=== PATIENT | male | born 1975 | race Caucasian/White ===

== ENCOUNTER 2017-07-20 08:54 | Emergency (ER) | payer OTHER ==
[~2017-07-20] VITALS: Ht 182.9 cm; Wt 71.7 kg
[~2017-07-20 08:54] MED LIST: Amoxicillin500 MG PO; HYDACE5 PO; HYDACE7.5 PO; IBUP600 PO; IBUP800 PO; OXYACE5T PO; Veetids 500500 MG PO
[2017-07-20] MEDS ORDERED: VICODIN 5-3001 EACH PO (11:15)
== END 2017-07-20 11:32 | disposition home or self-care (01) ==
LOC: ER 08:54
DX: S93.402A Sprain of unspecified ligament of left ankle, initial encounter (principal); X58.XXXA Exposure to other specified factors, initial encounter; Z88.8 Allergy status to other drugs, medicaments and biological substances; Z79.2 Long term (current) use of antibiotics
CPT/HCPCS: 36415; 73610; 84550; 99283

== ENCOUNTER 2017-07-24 10:35 | Emergency (ER) | payer OTHER ==
[~2017-07-24] VITALS: Ht 170.2 cm; Wt 77.1 kg
[~2017-07-24 10:35] MED LIST changes: +VICODIN 5-3001 EACH PO
== END 2017-07-24 11:55 | disposition home or self-care (01) ==
LOC: ER 10:35
DX: M25.572 Pain in left ankle and joints of left foot (principal); M25.571 Pain in right ankle and joints of right foot; M54.5 Low back pain; M79.652 Pain in left thigh; M79.651 Pain in right thigh; F17.210 Nicotine dependence, cigarettes, uncomplicated
CPT/HCPCS: 72100; 99283

== ENCOUNTER → 2017-07-28 | Outpatient (CLI) | payer OTHER ==
[2017-07-28 10:03] LABS: BASOPHILS ABSOLUTE AUTO 0.01 K/mm3 (0.00-0.23); BASOPHILS PERCENT AUTO 0 % (0-2); EOSINOPHILS ABSOLUTE AUTO 0.11 K/mm3 (0.00-0.68); EOSINOPHILS PERCENT AUTO 1 % (0-6); Hematocrit 39.7 % (37.0-53.0); Hemoglobin 12.7 g/dL (13.5-17.5); IMMATURE GRAN ABSOLUTE AUTO 0.02 K/mm3 (0.00-0.10); IMMATURE GRAN PERCENT AUTO 0 % (0-1); LYMPHOCYTES ABSOLUTE AUTO 1.32 K/mm3 (0.84-5.20); LYMPHOCYTES PERCENT AUTO 14 % (21-46); MONOCYTES ABSOLUTE AUTO 0.39 K/mm3 (0.16-1.47); MONOCYTES PERCENT AUTO 4 % (4-13); Mean Corpuscular HGB 29.5 pg (26.0-34.0); Mean Corpuscular Volume 92 fL (80-100); Mean Platelet Volume 10.9 fL (9.1-12.4); NEUTROPHILS ABSOLUTE AUTO 7.74 K/mm3 (1.96-9.15); NEUTROPHILS PERCENT AUTO 81 % (41-73); Platelet Count 214 K/mm3 (150-400); RDW Coefficient Variation 13.2 % (11.7-14.2); RDW Standard Deviation 44.2 fL (35.1-46.3); Red Blood Cell Count 4.31 M/mm3 (4.30-5.90); White Blood Cell Count 9.59 K/mm3 (4.00-11.30)
[2017-07-28 10:17] LABS: Alanine Aminotransfer (ALT/SGP 24 U/L (12-78); Albumin, Blood 3.8 g/dL (3.4-5.0); Albumin/Globulin Ratio 1.2 (0.8-1.8); Alk Phos 129 U/L (40-126); Anion Gap 6 mmol/L (6-16); Aspartate Aminotrans (AST/SGOT 23 U/L (12-37); Bilirubin, Total 0.3 mg/dL (0.1-1.0); Blood Urea Nitrogen 9 mg/dL (8-24); Bun/Creatinine Ratio 11.3 (12.0-20.0); CO2, Blood 31 mmol/L (21-32); Chloride, Blood 106 mmol/L (98-108); Globulin, Blood 3.3 g/dL (2.2-4.0); Glomerular Filtration Rate >60 (60-); Glucose, Blood 105 mg/dL (70-99); Potassium, Blood 4.1 mmol/L (3.5-5.5); Sodium, Blood 143 mmol/L (136-145); Total Protein, Blood 7.1 g/dL (6.4-8.2)
== END | disposition home or self-care (01) ==
LOC: LAB EV 09:59 → LAB SHORT 09:59
PROVIDERS: Physician Assistant
DX: R60.0 Localized edema (principal)
CPT/HCPCS: 80053; 83690; 85025; 85379

== ENCOUNTER 2019-12-24 00:11 | Emergency (ER) | payer OTHER ==
[~2019-12-24] VITALS: Ht 182.9 cm; Wt 70.3 kg
== END 2019-12-24 02:14 | disposition left against medical advice (07) ==
LOC: ER 00:11
DX: Z53.21 Procedure and treatment not carried out due to patient leaving prior to being seen by health care provider (principal)

== ENCOUNTER 2019-12-25 05:38 | Emergency (ER) | payer OTHER ==
[~2019-12-25] VITALS: Ht 182.9 cm; Wt 70.3 kg
[2019-12-25 06:34] LABS: Alanine Aminotransfer (ALT/SGP 18 U/L (12-78); Albumin, Blood 3.4 g/dL (3.4-5.0); Albumin/Globulin Ratio 0.9 (0.8-1.8); Alk Phos 109 U/L (50-136); Anion Gap 6 mmol/L (6-16); Aspartate Aminotrans (AST/SGOT 19 U/L (12-37); Bilirubin, Total 0.5 mg/dL (0.1-1.0); Blood Urea Nitrogen 7 mg/dL (8-24); Bun/Creatinine Ratio 9.8 (12.0-20.0); CO2, Blood 31 mmol/L (21-32); Calcium, Blood 8.9 mg/dL (8.5-10.1); Chloride, Blood 102 mmol/L (98-108); Creatinine, Blood 0.72 mg/dL (0.60-1.20); Globulin, Blood 3.7 g/dL (2.2-4.0); Glomerular Filtration Rate >60 (60-); Glucose, Blood 138 mg/dL (70-99); Potassium, Blood 3.3 mmol/L (3.5-5.5); Sodium, Blood 139 mmol/L (136-145); Total Protein, Blood 7.1 g/dL (6.4-8.2)
[2019-12-25 06:36] LABS: BASOPHILS ABSOLUTE AUTO 0.02 K/mm3 (0.00-0.23); BASOPHILS PERCENT AUTO 0 % (0-2); EOSINOPHILS ABSOLUTE AUTO 0.05 K/mm3 (0.00-0.68); EOSINOPHILS PERCENT AUTO 0 % (0-6); Hematocrit 39.6 % (37.0-53.0); Hemoglobin 12.8 g/dL (13.5-17.5); IMMATURE GRAN ABSOLUTE AUTO 0.06 K/mm3 (0.00-0.10); IMMATURE GRAN PERCENT AUTO 0 % (0-1); LYMPHOCYTES ABSOLUTE AUTO 0.91 K/mm3 (0.84-5.20); LYMPHOCYTES PERCENT AUTO 6 % (21-46); MONOCYTES ABSOLUTE AUTO 1.06 K/mm3 (0.16-1.47); MONOCYTES PERCENT AUTO 8 % (4-13); Mean Corpuscular HGB 30.4 pg (26.0-34.0); Mean Corpuscular HGB Conc 32.3 g/dL (31.5-36.5); Mean Corpuscular Volume 94 fL (80-100); Mean Platelet Volume 11.1 fL (9.1-12.4); NEUTROPHILS ABSOLUTE AUTO 12.07 K/mm3 (1.96-9.15); NEUTROPHILS PERCENT AUTO 85 % (41-73); Platelet Count 224 K/mm3 (150-400); RDW Coefficient Variation 12.3 % (11.7-14.2); RDW Standard Deviation 42.6 fL (35.1-46.3); Red Blood Cell Count 4.21 M/mm3 (4.30-5.90); White Blood Cell Count 14.17 K/mm3 (4.00-11.30)
== END 2019-12-25 09:34 | disposition short-term general hospital (02) ==
LOC: ER 05:38
PROVIDERS: Emergency Medicine
DX: K12.2 Cellulitis and abscess of mouth (principal); B37.0 Candidal stomatitis; R06.02 Shortness of breath; F17.210 Nicotine dependence, cigarettes, uncomplicated
CPT/HCPCS: 31500; 31720; 51702; 70491; 71045; 80053; 85025; 94002; 94770; 96361-59; 96365-59; 96366-59; 96367-59; 96372-59; 96375-59; 99285-25; J0171; J0330; J1100; J1170; J1200; J1450; J1885; J2060; J2250; J2405; J2543; J2704; J3010; J7030; Q9967; U0002

== ENCOUNTER 2023-11-04 11:38 | Inpatient (IN) | payer OTHER ==
[~2023-11-04] VITALS: Ht 182.9 cm; Wt 70.3 kg
[2023-11-04] MEDS ORDERED: HYDROmorphone HCl/Pf 1MG SYR IV ONE (12:10)
[2023-11-04] MEDS ORDERED: Ketorolac Tromethamine 30mg Vial IV ONE (12:45)
[2023-11-04 13:05] LABS: BASOPHILS ABSOLUTE AUTO 0.02 K/mm3 (0.00-0.23); BASOPHILS PERCENT AUTO 0 % (0-2); EOSINOPHILS ABSOLUTE AUTO 0.08 K/mm3 (0.00-0.68); EOSINOPHILS PERCENT AUTO 1 % (0-6); Hematocrit 36.3 % (37.0-53.0); Hemoglobin 12.1 g/dL (13.5-17.5); IMMATURE GRAN ABSOLUTE AUTO 0.02 K/mm3 (0.00-0.10); IMMATURE GRAN PERCENT AUTO 0 % (0-1); LYMPHOCYTES ABSOLUTE AUTO 1.89 K/mm3 (0.84-5.20); LYMPHOCYTES PERCENT AUTO 27 % (21-46); MONOCYTES ABSOLUTE AUTO 0.44 K/mm3 (0.16-1.47); MONOCYTES PERCENT AUTO 6 % (4-13); Mean Corpuscular HGB 29.3 pg (26.0-34.0); Mean Corpuscular HGB Conc 33.3 g/dL (31.5-36.5); Mean Corpuscular Volume 88 fL (80-100); Mean Platelet Volume 10.6 fL (9.1-12.4); NEUTROPHILS ABSOLUTE AUTO 4.59 K/mm3 (1.96-9.15); NEUTROPHILS PERCENT AUTO 65 % (41-73); Platelet Count 237 K/mm3 (150-400); RDW Coefficient Variation 13.2 % (11.7-14.2); RDW Standard Deviation 43.1 fL (35.1-46.3); Red Blood Cell Count 4.13 M/mm3 (4.30-5.90); White Blood Cell Count 7.04 K/mm3 (4.00-11.30)
[2023-11-04 13:30] LABS: Albumin, Blood 3.9 g/dL (3.4-5.0); Albumin/Globulin Ratio 1.5 (0.8-1.8); Bilirubin, Total 0.8 mg/dL (0.1-1.0); Calcium, Blood 8.9 mg/dL (8.5-10.1); Creatinine, Blood 0.79 mg/dL (0.60-1.20); Globulin, Blood 2.6 g/dL (2.2-4.0); Potassium, Blood 3.4 mmol/L (3.5-5.5); Total Protein, Blood 6.5 g/dL (6.4-8.2)
[2023-11-04 14:05] LABS: International Normalized Ratio 1.02; Prothrombin Time Results 10.9 Sec (9.7-11.5)
[2023-11-04] MEDS ORDERED: Cyclobenzaprine HCl 10 MG Tab PO PRN (15:05)
[2023-11-04] MEDS ORDERED: Acetaminophen 325 MG TABLET PO PRN (15:05)
[2023-11-04] MEDS ORDERED: OxyCODONE HCL 5 MG TAB PO PRN (15:05)
[2023-11-04] MEDS ORDERED: Ondansetron 4 MG TAB PO PRN (15:05)
--- NOTE | 2023-11-04 16:55 | NUR ---
ARRIVAL TO SURGICAL UNIT SLID OVER TO HOSPITAL BED, STOIC. ALERT & ORIENTED, PLEASANT. WATER & SNACKS GIVEN. PT UNDERSTANDS NPO AFTER MN.
[2023-11-04 16:57] VITALS: BP 136/97
[2023-11-04] MEDS ORDERED: HYDROmorphone HCl/Pf 1MG SYR IV PRN (18:15)
[2023-11-04 19:49] VITALS: BP 124/89
[2023-11-05] VITALS (10 sets, daily range): BP systolic 119–137; BP diastolic 68–98
[2023-11-05 04:56] LABS: BASOPHILS ABSOLUTE AUTO 0.02 K/mm3 (0.00-0.23); BASOPHILS PERCENT AUTO 0 % (0-2); EOSINOPHILS ABSOLUTE AUTO 0.18 K/mm3 (0.00-0.68); EOSINOPHILS PERCENT AUTO 2 % (0-6); Hematocrit 34.1 % (37.0-53.0); Hemoglobin 11.2 g/dL (13.5-17.5); IMMATURE GRAN ABSOLUTE AUTO 0.01 K/mm3 (0.00-0.10); IMMATURE GRAN PERCENT AUTO 0 % (0-1); LYMPHOCYTES ABSOLUTE AUTO 1.41 K/mm3 (0.84-5.20); LYMPHOCYTES PERCENT AUTO 17 % (21-46); MONOCYTES ABSOLUTE AUTO 0.56 K/mm3 (0.16-1.47); MONOCYTES PERCENT AUTO 7 % (4-13); Mean Corpuscular HGB 29.6 pg (26.0-34.0); Mean Corpuscular HGB Conc 32.8 g/dL (31.5-36.5); Mean Corpuscular Volume 90 fL (80-100); Mean Platelet Volume 10.1 fL (9.1-12.4); NEUTROPHILS ABSOLUTE AUTO 6.32 K/mm3 (1.96-9.15); NEUTROPHILS PERCENT AUTO 74 % (41-73); Platelet Count 180 K/mm3 (150-400); RDW Coefficient Variation 13.2 % (11.7-14.2); RDW Standard Deviation 43.9 fL (35.1-46.3); Red Blood Cell Count 3.79 M/mm3 (4.30-5.90)
--- NOTE | 2023-11-05 05:00 | NUR ---
SUMMARY- PT PAIN HAS BEEN MANAGED WELL THIS SHIFT. PT HAS BEEN NPO SINCE AR. 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 PT VOIDING WELL VIA URINAL. NO NEW ISSUES NOTED. CALL LIGHT IN REACH.
[2023-11-05] MEDS ORDERED: NS 1,000 ML IV SCH (05:50)
[2023-11-05 06:11] LABS: Albumin, Blood 3.5 g/dL (3.4-5.0); Albumin/Globulin Ratio 1.3 (0.8-1.8); Bilirubin, Total 1.1 mg/dL (0.1-1.0); Calcium, Blood 8.5 mg/dL (8.5-10.1); Creatinine, Blood 0.67 mg/dL (0.60-1.20); Globulin, Blood 2.6 g/dL (2.2-4.0); Potassium, Blood 3.1 mmol/L (3.5-5.5); Total Protein, Blood 6.1 g/dL (6.4-8.2)
[2023-11-05] MEDS ORDERED: CeFAZolin Sodium 2,000 MG in NS 100 ML IV SCH (06:25)
[2023-11-05] MEDS ORDERED: Potassium Chloride 40 MEQ in NS 250 ML IV STA (06:57)
[2023-11-05] MEDS ORDERED: Enoxaparin 40 MG/0.4 ML SYR SC SCH (09:00)
[2023-11-05] MEDS ORDERED: HYDROmorphone HCl/Pf 1MG SYR IV PRN ×3 (09:45→22:50)
--- NOTE | 2023-11-05 13:20 | NUR ---
PT CHOOSES TO REFUSE IVF.
[2023-11-05] MEDS ORDERED: Lactated Ringer's 1,000 ML IV SCH (13:55)
[2023-11-05] MEDS ORDERED: Tranexamic Acid 100 ML IV SCH (13:58)
--- NOTE | 2023-11-05 15:02 | NUR ---
Consultation request for maladaptive and disruptive behavior received. Social matrix, medical history, and surgical situation reviewed. No documentation on file indicating problematic conduct, threats of harm or aggression. Interacted with nursing unit staff for clarification. The principal was reportedly upset about a perceived or actual disruption to his surgical schedule. The supposed delay induced agitation as the principal is NPO, and has a strong desire to return home to his daughter. The orthopedic surgeon has since interfaced directly with the patient, and the nursing staff indicate a measurable positive imrpovement in mood. If his affect and behavior deteriorate please initate a second MAD consult. It is thought that performing one now while his conduct is stable might instigate avoidable tension.
--- NOTE | 2023-11-05 18:44 | NUR ---
SHIFT SUMMARY PT HAS BEEN ACTING OUT INTERMITTENT YELLING & CUSSING ABOUT NOT HAVING SURGERY UNTIL LATE, THE DOCTORS, THE FACILITY, & NOT EATING OR DRINKING. EXPRESSES HE FEELS HE IS GOING TO FROM NOT EATING OR DRINKING TODAY. THREATENING STAFF, AGRUING w/ STAFF, THROWING ITEMS IN THE ROOM NOTIFIED DR MOREAU & HE CAME TO ROOM TO REASSURE HIM HE IS ON THE OR SCHEDULE. AWAITING TO GO TO OR.
[2023-11-05] MEDS ORDERED: propofoL 40 ML IV ONE (20:30)
[2023-11-05] MEDS ORDERED: FentaNYL Citrate 50 MCG/ML 2 ML Injection ONE ×2 (20:31→22:29)
[2023-11-05] MEDS ORDERED: Lidocaine HCl 2% 20 ML MDV ONE (20:31)
[2023-11-05] MEDS ORDERED: Acetaminophen 650 MG Supp PR PRN (20:35)
[2023-11-05] MEDS ORDERED: NS KCl 20mEq 1,000 ML IV SCH (20:35)
[2023-11-05] MEDS ORDERED: Magnesium Hydroxide Conc 10 ML UDC PO PRN (20:35)
[2023-11-05] MEDS ORDERED: Naloxone HCl 0.4MG / ML 1ML Vial IV PRN (20:40)
[2023-11-05] MEDS ORDERED: Acetaminophen 325 MG TABLET PO PRN (20:40)
[2023-11-05] MEDS ORDERED: Ondansetron 4 MG TAB PO PRN (20:40)
[2023-11-05] MEDS ORDERED: Metoclopramide HCl 10 MG Tab PO PRN (20:40)
[2023-11-05] MEDS ORDERED: Bisacodyl 10 MG Supp PR PRN (20:40)
[2023-11-05] MEDS ORDERED: DiphenhydrAMINE HCL 25 MG Cap PO PRN (20:40)
[2023-11-05] MEDS ORDERED: OxyCODONE HCL 5 MG TAB PO PRN (20:40)
[2023-11-05] MEDS ORDERED: Ondansetron HCl 2 MG / ML 2ML Vial IV PRN ×2 (20:45→22:50)
[2023-11-05] MEDS ORDERED: Ketorolac Tromethamine 15mg Vial IV PRN (20:45)
[2023-11-05] MEDS ORDERED: Naproxen 500 MG Tab PO PRN (20:50)
[2023-11-05] MEDS ORDERED: Docusate Sodium 100 MG Cap PO SCH (21:00)
[2023-11-05] MEDS ORDERED: CeFAZolin Sodium 1000 mg Vial ONE (21:15)
[2023-11-05] MEDS ORDERED: Dexamethasone Sod Phos 10 MG/ML 1ML VIAL ONE (21:37)
[2023-11-05] MEDS ORDERED: Ondansetron HCl 2 MG / ML 2ML Vial ONE (21:37)
[2023-11-05] MEDS ORDERED: FentaNYL Citrate 50 MCG/ML 2 ML Injection IV PRN ×2 (22:45)
[2023-11-05] MEDS ORDERED: Ketorolac Tromethamine 30mg Vial IV PRN (22:45)
[2023-11-05] MEDS ORDERED: Morphine Sulfate 4 MG/1 ML Injection IV PRN (22:50)
[2023-11-05] MEDS ORDERED: Meperidine HCl 50 MG/ML 1ML Injection IV PRN (22:50)
[2023-11-05] MEDS ORDERED: LORazepam 2 MG/ML 1ML Injection IV PRN (22:55)
[2023-11-05] MEDS ORDERED: HydrALAZINE HCl 20 MG / ML 1ML Vial IV PRN (22:55)
[2023-11-05] MEDS ORDERED: Atropine Sulfate 0.1 MG/ML 10ML SYR IV PRN (22:55)
[2023-11-05] MEDS ORDERED: ePHEDrine Sulfate 50 MG/ML 1ML Injection IV PRN (22:55)
[2023-11-05] MEDS ORDERED: Albuterol 2.5 MG/3 ML VIAL INH PRN (22:55)
[2023-11-05] MEDS ORDERED: Labetalol HCL 5 MG/ML 4ML Injection (Single Dose) IV PRN (22:55)
[2023-11-05] MEDS ORDERED: Haloperidol Lactate Inj. 5 MG/ML Injection IV PRN (23:00)
--- NOTE | 2023-11-05 23:19 | NUR ---
ARRIVAL TO UNIT FROM PACU PT BROUGHT ON BED FROM PACU, AWAKE AND ALERT. PT ABLE TO WIGGLE TOES, PULSE TO R FOOT WNL. DRESSING TO R HIP ARE C/D/I. PT HAS WATER AND JELLO. CALL LIGHT WITHIN REACH
[2023-11-06 00:20] VITALS: BP 131/84
[2023-11-06 01:19] VITALS: BP 124/86
[2023-11-06 02:15] VITALS: BP 124/86
--- NOTE | 2023-11-06 04:35 | NUR ---
SHIFT SUMMARY POD 1 R HIP NAILING PT RESTLESS DURING THE NIGHT. PAIN MANAGED PER EMAR. PT TOLERATING PO INTAKE. VOIDING. HAS NOT YET BEEN OOB. DRESSING TO R HIP C/D/I. PT ABLE TO DRESS HIMSELF TONIGHT. PT STATES H WANTS TO BE BALE TO GET OUT OF HERE TODAY. PT EDUCATED ON DISCHARGE PLANNING. VSS. NO OTHER CONCERNS AT THIS TIME, CALL LIGHT WITHIN REACH
[2023-11-06 04:42] LABS: BASOPHILS ABSOLUTE AUTO 0.01 K/mm3 (0.00-0.23); BASOPHILS PERCENT AUTO 0 % (0-2); EOSINOPHILS PERCENT AUTO 0 % (0-6); Hemoglobin 10.9 g/dL (13.5-17.5); IMMATURE GRAN ABSOLUTE AUTO 0.05 K/mm3 (0.00-0.10); IMMATURE GRAN PERCENT AUTO 0 % (0-1); LYMPHOCYTES ABSOLUTE AUTO 0.33 K/mm3 (0.84-5.20); LYMPHOCYTES PERCENT AUTO 3 % (21-46); MONOCYTES ABSOLUTE AUTO 0.07 K/mm3 (0.16-1.47); MONOCYTES PERCENT AUTO 1 % (4-13); Mean Corpuscular HGB 29.2 pg (26.0-34.0); Mean Corpuscular HGB Conc 32.1 g/dL (31.5-36.5); Mean Corpuscular Volume 91 fL (80-100); Mean Platelet Volume 10.6 fL (9.1-12.4); NEUTROPHILS ABSOLUTE AUTO 11.78 K/mm3 (1.96-9.15); NEUTROPHILS PERCENT AUTO 96 % (41-73); Platelet Count 186 K/mm3 (150-400); RDW Coefficient Variation 13.2 % (11.7-14.2); RDW Standard Deviation 43.9 fL (35.1-46.3); Red Blood Cell Count 3.73 M/mm3 (4.30-5.90); White Blood Cell Count 12.24 K/mm3 (4.00-11.30)
[2023-11-06 05:03] LABS: Albumin, Blood 3.5 g/dL (3.4-5.0); Albumin/Globulin Ratio 1.2 (0.8-1.8); Bilirubin, Total 0.7 mg/dL (0.1-1.0); Bun/Creatinine Ratio 17.8 (12.0-20.0); Calcium, Blood 8.6 mg/dL (8.5-10.1); Creatinine, Blood 1.01 mg/dL (0.60-1.20); Globulin, Blood 2.9 g/dL (2.2-4.0); Magnesium, Blood 2.1 mg/dL (1.6-2.4); Potassium, Blood 4.5 mmol/L (3.5-5.5); Total Protein, Blood 6.4 g/dL (6.4-8.2)
[2023-11-06] MEDS ORDERED: CeFAZolin Sodium 2,000 MG in NS 100 ML IV SCH (05:30)
[2023-11-06 07:16] VITALS: BP 132/77
[2023-11-06] MEDS ORDERED: ACET325 PO (10:49)
[2023-11-06] MEDS ORDERED: Cyclobenzaprine5 MG PO (10:49)
[2023-11-06] MEDS ORDERED: OXYC5 PO (10:50)
[2023-11-06] MEDS ORDERED: VISBIOME 112.51 EACH PO (10:51)
[2023-11-06] MEDS ORDERED: CEPH500 PO (10:53)
[2023-11-06] MEDS ORDERED: Cephalexin Monohydrate 500 MG Cap PO ONE (10:55)
[2023-11-06 11:06] VITALS: BP 136/83
--- NOTE | 2023-11-06 11:47 | NUR ---
DISCHARGE PT PROVIDED WITH WRITTEN AND VERBAL DISCHARGE INSTRUCTIONS, PT REPORTED UNDERSTANDING. CLEAN DRESSINGS PROVIDED. PRESCRIPTION FOR PAIN MEDICATION PROVIDED TO PT FROM DR. LANDRUM. OTHER MEDICATIONS FAXED TO [facility] PER PT REQUEST. VSS PRIOR TO DISCHARGE. TOE TOUCH WEIGHT BEARING STATUS EDUCATION REINFORCED AND INSTRUCTIONS REGARDING THIS ADDED TO DISCHARGE PAPERWORK. PT MET GOALS PRIOR TO DISCHARGE. PT ASSISTED OUT IN W/C AT 1113 TO WAIT FOR [facility] TRANSPORT. PT VERBALIZED THAT HE WAS PLEASED WITH THE DISCHARGE PLAN.
[2023-11-06] MEDS ORDERED: Enoxaparin 40 MG/0.4 ML SYR SC SCH (17:00)
== END 2023-11-06 11:16 | disposition home or self-care (01) | DRG 482 ==
LOC: ER 11:38 → SURS 15:01 → ER 11-05 09:30 → SURS 11-06 11:16
PROVIDERS: Family Medicine; Orthopaedic Surgery; Student in an Organized Health Care Education/Training Program; ADMIT Internal Medicine
PROC: 0QS634Z Reposition Right Upper Femur with Internal Fixation Device, Percutaneous Approach (ICD-10-PCS; principal; 2023-11-05 20:00)
DX: S72.141A Displaced intertrochanteric fracture of right femur, initial encounter for closed fracture (principal); F17.210 Nicotine dependence, cigarettes, uncomplicated; V85.5XXA Driver of special construction vehicle injured in nontraffic accident, initial encounter; Z90.49 Acquired absence of other specified parts of digestive tract; Z87.19 Personal history of other diseases of the digestive system
CPT/HCPCS: 36415; 72170; 72192; 76377; 80053; 83735; 85025; 85610; 86850; 86900; 86901; 93005; 93010; 96374; 96375; 97110; 97116; 97162; 99285-25; A9270; C1713; C1769; J0690; J1100; J1170; J1885; J2405; J2704; J3010; J3480; J7030; J7050